=== PATIENT | female | born 2000 | race African-American/Black ===

== ENCOUNTER 2023-07-16 13:06 | Emergency (ER) | payer MEDICAID, OTHER ==
[~2023-07-16] VITALS: Ht 160 cm; Wt 54.0 kg
[2023-07-16 13:08] VITALS: BP 122/77; PULSE 74; RESP 16; O2SAT 99
[2023-07-16 14:24] VITALS: TEMP 98.3
[2023-07-16] MEDS: ACETAMINOPHEN 325MG TABLET PO STA (14:24)
== END 2023-07-16 14:40 | disposition home or self-care (01) ==
LOC: ER 13:06
DX: S01.511A Laceration without foreign body of lip, initial encounter (principal); W18.30XA Fall on same level, unspecified, initial encounter; Y93.89 Activity, other specified; Y92.89 Other specified places as the place of occurrence of the external cause; Y99.8 Other external cause status
CPT/HCPCS: 12013; 99283

== ENCOUNTER 2024-03-29 06:28 | Emergency (ER) | payer OTHER ==
[~2024-03-29] VITALS: Ht 175.3 cm; Wt 73.0 kg
[2024-03-29 06:31] VITALS: BP 114/63; PULSE 66; RESP 18; TEMP 98.8; O2SAT 100
[2024-03-29] MEDS: METOCLOPRAMIDE HCL 10MG/2ML VIAL IM ONE (07:27)
[2024-03-29 07:28] LABS: BASOPHILS % 0.4 % (0.0-2.0); EOSINOPHILS % 1.3 % (0.0-5.0); HEMATOCRIT. 38.7 % (36.0-48.0); HEMOGLOBIN. 12.9 g/dL (12.0-16.0); MEAN CORPUSCULAR HEMOGLOBIN 30.4 pg (28.0-32.0); MEAN CORPUSCULAR HGB CONC 33.5 g/dL (31.0-37.0); MEAN CORPUSCULAR VOLUME 90.9 fL (81.0-99.0); NEUTROPHILS % 44.3 % (40.0-76.0); PLATELET 196 x1000/uL (130-400); RED BLOOD CELL COUNT 4.26 mill/uL (4.2-5.4); RED CELL DISTRIBUTION WIDTH 12.6 % (11.6-14.6)
[2024-03-29] MEDS: ACETAMINOPHEN 325MG TABLET PO ONE (07:29)
[2024-03-29 07:37] LABS: CARBON DIOXIDE 28 mEq/L (21-32); CHLORIDE 108 mEq/L (98-107); POTASSIUM 3.9 mEq/L (3.5-5.1); SODIUM 139 mEq/L (136-145)
[2024-03-29 07:38] LABS: CALCIUM 9.4 mg/dL (8.7-10.4)
[2024-03-29 07:42] LABS: CREATININE 0.6 mg/dL (0.6-1.0)
[2024-03-29 07:43] LABS: GLUCOSE 94 mg/dL (70-105)
[2024-03-29 07:44] LABS: ALANINE AMINOTRANSFERASE 8 IU/L (10-49); ASPARTATE AMINOTRANSFERASE 16 IU/L (<34)
[2024-03-29 07:45] LABS: ALBUMIN 4.4 g/dL (3.2-4.8); BILIRUBIN DIRECT 0.3 mg/dL (<=3.0); BILIRUBIN TOTAL 0.9 mg/dL (0.1-1.0); PROTEIN TOTAL 6.9 g/dL (6.0-8.3)
[2024-03-29 07:54] LABS: CLARITY URINE CLEAR (CLEAR); COLOR URINE YELLOW (YELLOW); GLUCOSE URINE NEGATIVE (NEGATIVE); KETONES URINE NEGATIVE (NEGATIVE); LEUKOCYTE ESTERASE URINE TRACE (NEGATIVE); NITRITE URINE NEGATIVE (NEGATIVE); OCCULT BLOOD URINE NEGATIVE (NEGATIVE); PH URINE 6.5 (4.5-8.0); PROTEIN URINE NEGATIVE (NEGATIVE); SPECIFIC GRAVITY URINE 1.014 (1.005-1.030)
[2024-03-29 08:37] LABS: UREA NITROGEN BLOOD < 5 mg/dL (9-23)
[2024-03-29 08:39] LABS: SQUAMOUS EPITHELIAL CELL URINE 2+ /lpf (RARE/1+)
[2024-03-29 08:40] LABS: BACTERIA URINE TRACE; WBC URINE 0-2 /hpf (0-2)
[2024-03-29 08:41] LABS: RBC URINE NONE SEEN /hpf (0-2)
[2024-03-29] MEDS ORDERED: PENI500T MT (09:15)
[2024-03-29] MEDS ORDERED: IBUP-2029 MT (09:15)
== END 2024-03-29 09:38 | disposition home or self-care (01) ==
LOC: ER 06:33
DX: R10.9 Unspecified abdominal pain (principal); K08.89 Other specified disorders of teeth and supporting structures; K80.20 Calculus of gallbladder without cholecystitis without obstruction; Z87.442 Personal history of urinary calculi
CPT/HCPCS: 99285; 74176; 80076; 80048; 81003; 81025; 83690; 85025; 36415; 96372; J2765